=== PATIENT | female | born 1975 | race Caucasian/White ===

== ENCOUNTER 2019-03-11 10:04 | Emergency (ER) | payer MEDICARE, OTHER ==
--- NOTE | 2019-03-11 10:32 | RAD ---
Chest one view HISTORY: Fever. Chest pain. COMPARISON: 04/30/2005. FINDINGS: Cardiac silhouette is magnified and upper limits of normal in size. Pulmonary vasculature i s unremarkable. Mediastinum is midline. Postoperative changes cervical spine. No lobar consolidation or evidence of pneumothorax. IMPRESSION: No active cardiopulmonary abnormalities are demonstrated.
[2019-03-11] MEDS ORDERED: Morphine 4 MG/ML VIAL ONE (10:33)
[2019-03-11 10:53] LABS: #Basophils 0.1 thou/uL (0.0-0.2); #Eosinphils 0.1 thou/uL (0.0-0.7); #Lymphocytes 2.3 thou/uL (1.20-3.40); #Monocytes 0.5 thou/uL (0.11-0.59); #Neutrophils 2.7 thou/uL (1.40-6.50); %Basophils 1.1 % (0.0-1.0); %Eosinophils 1.9 % (0.0-10.0); %Lymphocytes 40.7 % (21.0-51.0); %Monocytes 8.3 % (0.0-10.0); %Neutrophils 47.9 % (42.0-75.0); Hemoglobin 13.8 g/dL (12.0-16.0); Mean Corpuscular HGB CONC 33.1 g/dL (32.0-36.0); Mean Corpuscular Hemoglobin 30.3 pg (27.0-31.0); Mean Corpuscular Volume 91.5 fL (78.0-98.0); Mean Platelet Volume 8.4 fL (7.4-10.4); Platelet Count 201 thou/uL (130-400); RBC Distribution Width 12.2 % (11.5-14.5); Red Blood Cell (RBC) Count 4.55 mill/uL (4.20-5.40); White Blood Cell (WBC) Count 5.6 thou/uL (4.8-10.8)
[2019-03-11 10:57] LABS: BHCG - Serum Negative (NEGATIVE); Pregs Control Background? CLEAR/WHITE (CLR/WHITE); Pregs Control Bar Appear? YES (CONTROL BAR)
[2019-03-11 11:16] LABS: ALT (SGPT) 16 U/L (8-55); AST (SGOT) 13 U/L (5-34); Albumin 4.2 g/dL (3.5-5.0); Alkaline Phosphatase 43 U/L (40-150); Anion Gap 14 mmol/L (10-20); BUN (Urea Nitrogen) 10 mg/dL (7.0-18.7); Bilirubin, Total 0.4 mg/dL (0.2-1.2); CK (CPK) 107 U/L (29-168); Calc. Creatinine Clearance 0 mL/min (70-130); Calcium 9.5 mg/dL (7.8-10.44); Carbon Dioxide 24 mmol/L (22-29); Chloride 106 mmol/L (98-107); Estimated GFR-MDRD Greater than 90; Globulin 2.5 g/dL (2.4-3.5); Glucose 83 mg/dL (70-105); Magnesium 2.4 mg/dL (1.6-2.6); Potassium 3.9 mmol/L (3.5-5.1); Protein, Total 6.7 g/dL (6.0-8.3); Sodium 140 mmol/L (136-145)
[2019-03-11 12:32] LABS: Bilirubin Negative (Negative); Blood, Urine Large (Negative); Clarity CLOUDY (Clear); Glucose, Urine (Dipstick) Negative (Negative); Leukocyte Large (Negative); Nitrite Negative (Negative); Protein, Urine (Dipstick) Negative (Neg-Trace); Specific Gravity, Urine 1.007 (1.002-1.036); Urobilinogen 0.2 mg/dL (0.2-1.0)
[2019-03-11 12:33] LABS: Bacteria/HPF 1+ HPF (None Seen); RBC/HPF GREATER THAN 50-TNTC HPF (0-3); Squamous Epithelial 0-3 HPF (0-3)
[2019-03-11 12:36] LABS: Pathc Cast-AUWi Flag 4.62 (0-2.49)
[2019-03-11 12:47] LABS: Hyaline Casts/LPF 0-3 HYALINE CAST LPF (0-3 Hyaline); Other Casts/LPF None Seen LPF (0-3 Hyaline)
== END 2019-03-11 14:16 | disposition home or self-care (01) ==
LOC: ERS 10:04
DX: R68.83 Chills (without fever) (principal); N39.0 Urinary tract infection, site not specified
CPT/HCPCS: 71045; 80053; 81003; 81015; 82550; 83735; 84484; 84703; 85025; 87077; 87086; 87186; 93005; J2270

== ENCOUNTER 2019-04-21 10:49 | Emergency (ER) | payer MEDICARE ==
[2019-04-21 12:04] LABS: #Basophils 0.1 thou/uL (0.0-0.2); #Eosinphils 0.1 thou/uL (0.0-0.7); #Lymphocytes 2.1 thou/uL (1.20-3.40); #Monocytes 0.6 thou/uL (0.11-0.59); #Neutrophils 3.5 thou/uL (1.40-6.50); %Basophils 1.7 % (0.0-1.0); %Eosinophils 1.5 % (0.0-10.0); %Lymphocytes 32.7 % (21.0-51.0); %Monocytes 8.8 % (0.0-10.0); %Neutrophils 55.3 % (42.0-75.0); Hemoglobin 14.4 g/dL (12.0-16.0); Mean Corpuscular HGB CONC 33.4 g/dL (32.0-36.0); Mean Corpuscular Hemoglobin 29.8 pg (27.0-31.0); Mean Corpuscular Volume 89.1 fL (78.0-98.0); Mean Platelet Volume 8.8 fL (7.4-10.4); Platelet Count 205 thou/uL (130-400); RBC Distribution Width 12.2 % (11.5-14.5); Red Blood Cell (RBC) Count 4.84 mill/uL (4.20-5.40); White Blood Cell (WBC) Count 6.4 thou/uL (4.8-10.8)
[2019-04-21 12:12] LABS: Bilirubin Negative (Negative); Blood, Urine Trace (Negative); Glucose, Urine (Dipstick) Negative (Negative); Leukocyte Small (Negative); Nitrite Positive (Negative); Protein, Urine (Dipstick) Negative (Neg-Trace); Urobilinogen 0.2 mg/dL (Less than 2)
[2019-04-21 12:14] LABS: Clarity Cloudy (Clear)
[2019-04-21 12:18] LABS: Bacteria/HPF 2+ HPF (None Seen); RBC/HPF 0-3 HPF (0-3)
[2019-04-21 12:23] LABS: ALT (SGPT) 18 U/L (8-55); AST (SGOT) 16 U/L (5-34); Albumin 4.3 g/dL (3.5-5.0); Alkaline Phosphatase 43 U/L (40-150); Anion Gap 13 mmol/L (10-20); BUN (Urea Nitrogen) 10 mg/dL (7.0-18.7); Bilirubin, Total 0.3 mg/dL (0.2-1.2); Calc. Creatinine Clearance 0 mL/min (70-130); Calcium 9.1 mg/dL (7.8-10.44); Carbon Dioxide 22 mmol/L (22-29); Chloride 107 mmol/L (98-107); Estimated GFR-MDRD Greater than 90; Globulin 2.6 g/dL (2.4-3.5); Glucose 86 mg/dL (70-105); Lipase 29 U/L (8-78); Potassium 4.5 mmol/L (3.5-5.1); Protein, Total 6.9 g/dL (6.0-8.3); Sodium 137 mmol/L (136-145)
--- NOTE | 2019-04-21 12:30 | RAD ---
PORTABLE CHEST 1 VIEW: Date: 04/21/19 Time: 1212 hours HISTORY: Hypotension. FINDINGS: Comparison made with exam of 03/11/19. The heart size is prominent, but stable. The lungs are well expanded without lobar consolidation, pne umothoraces, jose pulmonary edema, or pleural effusions. IMPRESSION: No acute process. POS: ABIODUN
--- NOTE | 2019-04-21 13:30 | ULT ---
VENOUS DOPPLER ULTRASOUND OF THE LEFT LOWER EXTREMITY: Date: 04/21/19 HISTORY: Paraplegia. TECHNIQUE: Shaffer scale ultrasound with color flow and spectral Doppler imaging of the deep venous systems of the left lower extremity performed. FINDINGS: The left posterior tibial vein was not evaluated due to presence of a catheter bag. There is good flow, compression, and augmentation noted in the left common femoral, femoral, deep fem oral, and popliteal veins. IMPRESSION: No evidence of deep venous thrombosis in femoral/popliteal venous system of the left lower extremity. POS: CARA
--- NOTE | 2019-04-21 14:42 | RAD ---
XR Tib Fib Rt Leg 2 View INDICATION: Foreleg pain and injury FINDINGS: Bones: No acute fracture or subluxation demonstrated. Diffuse osteopenia Joints: No acute abnormality. Soft tissues: No radiopaque foreign body is evident. IMPRESSION: No acute osseous abnormality.
--- NOTE | 2019-04-21 14:43 | RAD ---
XR Hip Rt 2-3 View INDICATION: Right hip pain COMPARISON: None FINDINGS: Bones: No acute fracture or subluxation demonstrated. There is diffuse osteopenia Hip joint: There is mild degenerative change of the right hip joint. SI joints and symphysis pubis: Mild degenerative change Intrapelvic contents: Small phleboliths. Bowel gas pattern is unobstructed. Surrounding soft tissues: Radiographically normal. IMPRESSION: 1. No acute osseous abnormality.
--- NOTE | 2019-04-21 14:43 | RAD ---
XR Femur Rt 2 View STANDARD INDICATION: Leg injury and pain COMPARISON: None. FINDINGS: Bones: No acute fracture or subluxation demonstrated. Diffuse osteopenia. Soft tissues: Within normal limits. Joints: The visualized knee and hip appear within normal limits. IMPRESSION: No acute osseous abnormality.
--- NOTE | 2019-04-22 07:46 | ULT ---
EXAM: Bilateral lower extremity venous Doppler evaluation PROVIDED CLINICAL HISTORY: History of paraplegia and concern for DVT TECHNIQUE: Grayscale, color doppler and spectral doppler images were obtained of the common femoral , femoral, profunda femoral, popliteal and posterior tibial veins of both lower extremities. FINDINGS: There is normal compression, flow and augmentation seen with the deep venous structures within both l ower extremities. IMPRESSION: No sonographic evidence for lower extremity deep venous thrombosis.
--- NOTE | 2019-04-23 14:45 | EKG ---
Test Reason : SOB Blood Pressure : / mmHG Vent. Rate : 061 BPM Atrial Rate : 061 BPM P-R Int : 128 ms QRS Dur : 080 ms QT Int : 406 ms P-R-T Axes : 063 090 032 degrees QTc Int : 408 ms Normal sinus rhythm Biatrial enlargement Rightward axis Inverted T in III Abnormal ECG Confirmed by SIMONE CORNEJO, CARINA ([id number]), scientific editor NORMAN GLASS ([id number]) on 04/23/2019 2:44:51 PM Referred By: Yeison NICHOLS Confirmed By:CARINA NICHOLS MD
== END 2019-04-21 15:31 | disposition home or self-care (01) ==
LOC: SCSER 10:49
DX: R61 Generalized hyperhidrosis (principal); Z79.899 Other long term (current) drug therapy
CPT/HCPCS: 71045; 80053; 81003; 81015; 83605; 83690; 84484; 85025; 87077; 87086; 87186; 93005; 93970

== ENCOUNTER 2019-05-28 10:04 | Emergency (ER) | payer MEDICARE ==
[2019-05-28 11:24] LABS: #Eosinphils 0.1 thou/uL (0.0-0.7); #Lymphocytes 2.2 thou/uL (1.20-3.40); #Monocytes 0.6 thou/uL (0.11-0.59); #Neutrophils 3.8 thou/uL (1.40-6.50); %Basophils 0.4 % (0.0-1.0); %Eosinophils 1.9 % (0.0-10.0); %Lymphocytes 32.3 % (21.0-51.0); %Monocytes 8.4 % (0.0-10.0); %Neutrophils 56.9 % (42.0-75.0); Hemoglobin 14.6 g/dL (12.0-16.0); Mean Corpuscular HGB CONC 33.5 g/dL (32.0-36.0); Mean Corpuscular Hemoglobin 30.6 pg (27.0-31.0); Mean Corpuscular Volume 91.4 fL (78.0-98.0); Mean Platelet Volume 8.5 fL (7.4-10.4); Platelet Count 208 thou/uL (130-400); RBC Distribution Width 12.2 % (11.5-14.5); Red Blood Cell (RBC) Count 4.78 mill/uL (4.20-5.40); White Blood Cell (WBC) Count 6.7 thou/uL (4.8-10.8)
[2019-05-28 11:39] LABS: ALT (SGPT) 14 U/L (8-55); AST (SGOT) 15 U/L (5-34); Albumin 4.5 g/dL (3.5-5.0); Alkaline Phosphatase 50 U/L (40-150); Anion Gap 10 mmol/L (10-20); BUN (Urea Nitrogen) 10 mg/dL (7.0-18.7); Bilirubin, Total 0.4 mg/dL (0.2-1.2); Calc. Creatinine Clearance 0 mL/min (70-130); Calcium 9.5 mg/dL (7.8-10.44); Carbon Dioxide 26 mmol/L (22-29); Chloride 103 mmol/L (98-107); Estimated GFR-MDRD Greater than 90; Globulin 2.7 g/dL (2.4-3.5); Glucose 76 mg/dL (70-105); Protein, Total 7.2 g/dL (6.0-8.3); Sodium 135 mmol/L (136-145)
[2019-05-28 12:49] LABS: Bilirubin Negative (Negative); Blood, Urine 2+ (Negative); Clarity Clear (Clear); Glucose, Urine (Dipstick) Normal (Negative); Leukocyte 250 Leu/uL (Negative); Nitrite Negative (Negative); Protein, Urine (Dipstick) 70 mg/dL (Neg-Trace); RBC/HPF 0-3 HPF (0-3); Squamous Epithelial 0-3 HPF (0-3); Urobilinogen Normal mg/dL (Less than 2)
[2019-05-28 12:50] LABS: Bacteria/HPF 1+ HPF (None Seen)
== END 2019-05-28 14:35 | disposition home or self-care (01) ==
LOC: ERS 10:04
DX: T83.098A Other mechanical complication of other urinary catheter, initial encounter (principal)
CPT/HCPCS: 36415; 80053; 81003; 81015; 85025; 87077; 87086; 87186; 93005

== ENCOUNTER 2019-06-23 10:05 | Emergency (ER) | payer MEDICARE | END 2019-06-23 11:09 | disposition home or self-care (01) | LOC: SCSER 10:05 | DX: T83.098A Other mechanical complication of other urinary catheter, initial encounter (principal) | CPT/HCPCS: 51702 ==

== ENCOUNTER 2020-06-12 06:12 | Day surgery (SDC) | payer MEDICARE, OTHER ==
[2020-06-10 11:35] VITALS: BMI 23.8
[2020-06-12] MEDS ORDERED: Bupivacaine PF 0.5% 30 ML VIAL ONE (07:11)
[2020-06-12] MEDS ORDERED: Lidocaine 1% w/Epinephrine 1:100K 20 ML VIAL ONE (07:11)
[2020-06-12] MEDS ORDERED: Midazolam HCl 2 mg/2 ml Vial ONE (07:33)
[2020-06-12] MEDS ORDERED: Promethazine HCl 25 MG/ML VIAL ONE (09:00)
[2020-06-12] MEDS ORDERED: Fentanyl 100 MCG/2 ML VIAL ONE (09:00)
[2020-06-12] MEDS ORDERED: Oxybutynin 5 MG TAB ONE (09:06)
[2020-06-12] MEDS ORDERED: Ketorolac Tromethamine 30 MG/ML VIAL ONE (09:06)
[2020-06-12] MEDS ORDERED: Ondansetron PF 4 MG/2 ML Vial ONE (09:10)
--- NOTE | 2020-06-12 10:15 | OP ---
DATE OF PROCEDURE: 06/12/2020 PREOPERATIVE DIAGNOSIS: Neurogenic bladder. POSTOPERATIVE DIAGNOSIS: Neurogenic bladder. PROCEDURE PERFORMED: Placement of suprapubic tube, cystoscopy, closure of cystotomy. ANESTHESIA: General. COMPLICATIONS: None. ESTIMATED BLOOD LOSS: 10 mL. SPECIMEN: None. DESCRIPTION OF PROCEDURE: After informed consent, the patient was taken to the operating room, transferred to the table under her own power. Anesthesia was established. Time-out was performed showing the correct patient, site, and procedure. Preoperative antibiotics were administered. She was prepped and draped in the supine position. I began by inserting the flexible cystoscope through the urethra into the bladder noting the suprapubic tube entering the anterior aspect of the bladder neck. The suprapubic tube site previously placed was immediately overlying the pubic symphysis. The indwelling suprapubic was removed and then a spinal needle was used to find a tract from 2 to 3 fingerbreadths above the pubic symphysis into the anterior aspect of the bladder near the dome. The intervening tract was anesthetized with 0.25% Marcaine mixed with lidocaine. I then used a Bard introducer set to place a 16-Turkmen suprapubic tube from the site 3 fingerbreadths above the pubic symphysis into the anterior aspect of the bladder near the dome. 5 mL was instilled in the balloon. This was confirmed with direct visualization. I then used electrocautery to incise around the previously placed suprapubic tube site and tracked down to the bladder along the tract. A 2-0 Vicryl suture was used to close the cystotomy beneath the tract, which was then amputated. The bladder was imbricated over the incision site. Vicryl was again used to close the fascia and deep tissue. Skin was closed in a running fashion with Monocryl. This was dressed with Dermabond. The suprapubic tube was placed to bag drainage and the new suprapubic site dressed with 4x4s and tape. She was then awoken from anesthesia and transferred back to her hospital bed, and taken to PACU in stable condition, where she will discharge home upon recovery. Job ID: [id number]
[2020-06-12] MEDS ORDERED: PROPOFOL 200 MG/20 ML VIAL ONE (11:22)
== END 2020-06-12 11:15 | disposition home or self-care (01) ==
LOC: SDC 06:12
PROVIDERS: ATTEND Urology
PROC: 0WQF0ZZ Repair Abdominal Wall, Open Approach (ICD-10-PCS; principal; 2020-06-12)
PROC: 0T9B00Z Drainage of Bladder with Drainage Device, Open Approach (ICD-10-PCS; principal; 2020-06-12)
DX: N31.9 Neuromuscular dysfunction of bladder, unspecified (principal); R33.9 Retention of urine, unspecified; Z79.899 Other long term (current) drug therapy; Z98.1 Arthrodesis status
CPT/HCPCS: J0690; J1885; J2250; J2405; J2550; J2704; J3010; S0020

== ENCOUNTER 2021-09-13 19:00 | Outpatient (CLI) | payer MEDICARE | END 2021-09-13 19:01 | disposition home or self-care (01) | LOC: SLEEPLAB 19:00 | PROVIDERS: ATTEND Internal Medicine Pulmonary Disease | DX: R06.89 Other abnormalities of breathing (principal); G47.33 Obstructive sleep apnea (adult) (pediatric); R53.83 Other fatigue; G82.50 Quadriplegia, unspecified; R06.4 Hyperventilation | CPT/HCPCS: 95810 ==

== ENCOUNTER 2022-01-12 11:30 | Inpatient (IN) | payer OTHER ==
[2022-01-12 12:21] VITALS: BMI 22.6
[2022-01-17] MEDS ORDERED: Lidocaine 1% w/Epinephrine 1:100K 20 ML VIAL ONE (09:53)
[2022-01-17] MEDS ORDERED: Bupivacaine 0.25% 10 ML VIAL ONE ×2 (09:53→09:54)
[2022-01-17] MEDS ORDERED: Lidocaine 1% MPF 2 ML VIAL ONE (10:07)
[2022-01-17] MEDS ORDERED: Fentanyl 100 MCG/2 ML VIAL ONE (10:51)
[2022-01-17] MEDS ORDERED: Fentanyl 250 MCG/5 ML VIAL ONE (11:05)
[2022-01-17] MEDS ORDERED: SUGAMMADEX SODIUM 200 MG/2 ML VIAL ONE (11:05)
[2022-01-17] MEDS ORDERED: Sodium Chloride 0.9% 100 ML ONE (11:16)
[2022-01-17] MEDS ORDERED: cefOXitin 2 GM VIAL ONE (11:16)
[2022-01-17] MEDS ORDERED: Dexamethasone 20 MG/5 ML VIAL ONE (11:38)
[2022-01-17] MEDS ORDERED: PROPOFOL 200 MG/20 ML VIAL ONE (11:38)
[2022-01-17] MEDS ORDERED: Esmolol 100 MG/10 ML VIAL ONE (11:38)
[2022-01-17] MEDS ORDERED: Ondansetron PF 4 MG/2 ML Vial ONE (11:38)
[2022-01-17] MEDS ORDERED: Lidocaine 1% PF 5 ML VIAL ONE (11:38)
[2022-01-17] MEDS ORDERED: Rocuronium Bromide 10 MG/ML (10ML VIAL) ONE (11:38)
[2022-01-17] MEDS ORDERED: ePHEDrine 50 MG/ML VIAL ONE (11:38)
[2022-01-17] MEDS ORDERED: Glycopyrrolate 0.2 MG/ML 5 ML SYRINGE ONE (11:38)
[2022-01-17] MEDS ORDERED: Promethazine HCl 25 MG/ML VIAL IM PRN ×2 (12:40→12:54)
[2022-01-17] MEDS ORDERED: Promethazine HCl 25 MG/ML VIAL IVPB PRN (12:40)
[2022-01-17] MEDS ORDERED: Ondansetron HCl/PF 4 MG/2 ML Vial IVP PRN (12:40)
[2022-01-17] MEDS ORDERED: Dextrose 5% in Water 1,000 ML IV PRN (12:54)
[2022-01-17] MEDS ORDERED: hydrALAZINE 20 MG/ML VIAL SLOW IVP PRN (12:54)
[2022-01-17] MEDS ORDERED: Dextrose 50% Abboject 50 ML SYRINGE SLOW IVP PRN (12:54)
[2022-01-17] MEDS ORDERED: Acetaminophen 650 MG Suppository PR PRN (12:54)
[2022-01-17] MEDS ORDERED: Ondansetron PF 4 MG/2 ML Vial IVP PRN (12:54)
[2022-01-17] MEDS ORDERED: HYDROcodone/Acetaminophen 7.5/325 mg Tablet PO PRN ×2 (12:54)
[2022-01-17] MEDS ORDERED: Fentanyl 100 MCG/2 ML VIAL SLOW IVP PRN (12:54)
[2022-01-17] MEDS: Pregabalin 75 MG CAP PO SCH ×2 (14:44→21:13)
[2022-01-17] MEDS: Docusate Sodium 100 MG/10 ML UDCUP PO SCH ×2 (15:57→21:12)
[2022-01-17] MEDS: Midodrine HCl 5 MG TAB PO PRN (18:54)
[2022-01-17] MEDS: Mometasone 100 MCG/Formoterol 5 MCG 120 PUFF INHALER INH SCH (19:09)
[2022-01-17] MEDS: D5 1/2 NS w/20 mEq KCL 1,000 ML IV SCH ×2 (19:32→21:15)
[2022-01-17] MEDS: Famotidine 20 MG TAB PO SCH (21:12)
[2022-01-17] MEDS: Baclofen 10 MG TAB PO SCH (21:14)
[2022-01-17] MEDS: Famotidine/PF 20 mg/2ml Vial SLOW IVP SCH (23:06)
[2022-01-18] MEDS ORDERED: Albuterol 200 PUFF (6.7GM INHALER) INH PRN (00:35)
[2022-01-18] MEDS: Midodrine HCl 5 MG TAB PO PRN ×3 (04:13→19:15)
[2022-01-18] MEDS: D5 1/2 NS w/20 mEq KCL 1,000 ML IV SCH ×2 (04:44→10:44)
[2022-01-18] MEDS: Mometasone 100 MCG/Formoterol 5 MCG 120 PUFF INHALER INH SCH ×2 (07:32→18:50)
[2022-01-18] MEDS: Famotidine 20 MG TAB PO SCH ×2 (08:48→21:06)
[2022-01-18] MEDS: Famotidine/PF 20 mg/2ml Vial SLOW IVP SCH ×2 (08:48→21:07)
[2022-01-18] MEDS: Pregabalin 75 MG CAP PO SCH ×3 (08:48→21:07)
[2022-01-18] MEDS: Docusate Sodium 100 MG/10 ML UDCUP PO SCH ×3 (08:49→21:07)
[2022-01-18] MEDS ORDERED: Bisacodyl 10 MG SUPP PR SCH (10:30)
[2022-01-18 11:04] LABS: #Lymphocytes 2.5 thou/uL (1.20-3.40); #Monocytes 0.6 thou/uL (0.11-0.59); #Neutrophils 4.6 thou/uL (1.40-6.50); %Basophils 0.2 % (0.0-1.0); %Eosinophils 0.6 % (0.0-10.0); %Lymphocytes 32.5 % (21.0-51.0); %Monocytes 7.2 % (0.0-10.0); %Neutrophils 59.5 % (42.0-75.0); Hemoglobin 12.1 g/dL (12.0-16.0); Mean Corpuscular Hemoglobin 31.3 pg (27.0-31.0); Mean Corpuscular Volume 94.9 fL (78.0-98.0); Mean Platelet Volume 7.9 fL (7.4-10.4); Platelet Count 201 thou/uL (130-400); RBC Distribution Width 12.8 % (11.5-14.5); Red Blood Cell (RBC) Count 3.88 mill/uL (4.20-5.40); White Blood Cell (WBC) Count 7.7 thou/uL (4.8-10.8)
[2022-01-18 11:23] LABS: Anion Gap 12 mmol/L (10-20); BUN (Urea Nitrogen) Less than 4 mg/dL (7.0-18.7); Calc. Creatinine Clearance 115 mL/min (70-130); Calcium 8.7 mg/dL (7.8-10.44); Carbon Dioxide 24 mmol/L (22-29); Chloride 107 mmol/L (98-107); Glucose 141 mg/dL (70-105); Sodium 139 mmol/L (136-145)
[2022-01-18] MEDS ORDERED: Acetaminophen 325 MG TAB PO PRN (18:25)
[2022-01-18] MEDS: Baclofen 10 MG TAB PO SCH (21:06)
[2022-01-19] MEDS: D5 1/2 NS w/20 mEq KCL 1,000 ML IV SCH (03:38)
[2022-01-19] MEDS: Midodrine HCl 5 MG TAB PO PRN (03:45)
[2022-01-19] MEDS: Mometasone 100 MCG/Formoterol 5 MCG 120 PUFF INHALER INH SCH (07:39)
[2022-01-19] MEDS: Docusate Sodium 100 MG/10 ML UDCUP PO SCH (08:58)
[2022-01-19] MEDS: Famotidine/PF 20 mg/2ml Vial SLOW IVP SCH (08:58)
[2022-01-19] MEDS: Famotidine 20 MG TAB PO SCH (09:07)
[2022-01-19] MEDS: Pregabalin 75 MG CAP PO SCH (09:07)
[2022-01-19 11:34] VITALS: BP 109/73; TEMP 98.3
== END 2022-01-19 12:50 | disposition home or self-care (01) | DRG 330 ==
LOC: SURG A 01-17 09:35 → INTOOBSV 01-17 09:35 → SURG A 01-17 14:10 → OBSVTOIN 01-19 10:19
PROVIDERS: ADMIT Surgery; ATTEND Surgery
PROC: 0D1M4Z4 Bypass Descending Colon to Cutaneous, Percutaneous Endoscopic Approach (ICD-10-PCS; principal; 2022-01-17)
DX: K64.8 Other hemorrhoids (principal); G82.20 Paraplegia, unspecified; K60.2 Anal fissure, unspecified; K59.9 Functional intestinal disorder, unspecified
CPT/HCPCS: 36415; 36416; 80048; 85025; 94664; A4649; C1713; G0378; J0694; J1100; J2405; J2704; J3010; J3480; J3490; S0020